=== PATIENT | male | born 1985 | race Two or more races ===

== ENCOUNTER 2022-03-15 16:23 | Outpatient (REF) | payer BC, SELFPAY ==
[2022-03-15 17:01] LABS: MANUAL DIFF FLAG NO
[2022-03-15 17:07] LABS: Basophils Percent Auto 0.3 % (0-2); Eosinophils Absolute Auto 0.1 X10*3/uL (0.0-0.4); Eosinophils Percent Auto 0.5 % (0-4); Hematocrit 41.5 % (42.0-52.0); Imm Gran Abs Auto 0.04 X10*3/uL (0.00-0.03); Imm Gran Pct Auto 0.4 % (0.0-0.4); Lymphocytes Absolute Auto 2.4 X10*3/uL (1.2-4.9); Lymphocytes Percent Auto 21.7 % (20-40); Mean Corpuscular HGB Conc 33.7 g/dl (31.0-36.0); Mean Corpuscular Hemoglobin 30.2 pg (27.0-33.0); Mean Corpuscular Volume 89.6 fL (80.0-98.0); Mean Platelet Volume 10.7 fL (9.4-12.4); Monocytes Absolute Auto 0.8 X10*3/uL (0.1-1.2); Monocytes Percent Auto 7.4 % (2-11); Neutrophils Absolute Auto 7.7 x10*3/uL (2.0-8.3); Neutrophils Percent Auto 69.7 % (45-73); Platelet Count 237 X10*3/uL (160-400); Red Blood Count 4.63 X10*6/uL (4.60-5.80); White Blood Count 11.1 X10*3/uL (4.8-10.8)
[2022-03-15 17:22] LABS: Estimated Average Glucose 97 mg/dL
[2022-03-15 17:42] LABS: Alanine Aminotransferase 15 U/L (0-40); Albumin Level 4.6 g/dL (3.5-5.0); Alkaline Phosphatase 44 U/L (39-117); Anion Gap 10 (12-20); Aspartate Amino Transferase 20 U/L (5-37); Bilirubin Total 0.5 mg/dL (0.0-1.0); Blood Urea Nitrogen 25 mg/dL (9-16); C Reactive Protein < 0.10 mg/dL (< or = 0.50); Calcium 9.6 mg/dL (8.4-10.2); Carbon Dioxide 26 mmol/L (22-29); Chloride 105 mmol/L (96-108); Cholesterol 171 mg/dL; Estimated Glomerular Filt Rate > 60; Glucose Random 91 mg/dL (60-115); Potassium 4.4 mmol/L (3.3-5.1); Rheumatoid Factor < 13.0 IU/mL (<15.0); Sodium 137 mmol/L (135-145); Total Protein 7.5 g/dL (6.5-8.0)
[2022-03-15 18:44] LABS: Appearance Urine Cloudy; Color Urine Yellow; Glucose Urine UA Negative (Negative); Leukocyte Esterase Urine Negative (Negative); Nitrite Urine Negative (Negative); Specific Gravity - Urine 1.025 (1.005-1.025); Urine Blood Negative (Negative); Urine Ketones Negative (Negative); Urine Protein Negative (Neg-Trace)
[2022-03-15 18:52] LABS: Creatinine Urine 137.57 mg/dL; Microalbum/Creatinine Ratio Ur 5.8 ug/mg cr
[2022-03-17 15:43] LABS: Anti Nuclear Antibody Screen NEGATIVE (NEGATIVE)
== END 2022-03-15 16:24 | disposition home or self-care (01) ==
LOC: HO.LAB 16:23
PROVIDERS: PCP Internal Medicine; Visit Provider Internal Medicine
DX: R30.0 Dysuria (principal); R63.4 Abnormal weight loss; Z83.3 Family history of diabetes mellitus
CPT/HCPCS: 36415; 80053; 81003; 82043; 82465; 83036; 85025; 86038; 86039; 86140; 86431; 87086

== ENCOUNTER → 2022-04-26 09:57 | Outpatient (BNVA) | payer BC, SELFPAY | PROVIDERS: PCP Internal Medicine; Visit Provider Nurse Practitioner Family | DX: R39.15 Urgency of urination (principal); N39.43 Post-void dribbling | CPT/HCPCS: 51798 ==

== ENCOUNTER 2022-07-27 15:25 | Outpatient (REF) | payer BC, SELFPAY ==
--- NOTE | ~2022-07-27 | US_ITS ---
EXAMINATION: US RETROPERITONEAL COMPLETE (RENAL) CLINICAL INFORMATION: Postvoid dribbling. COMPARISON: None available. TECHNIQUE: Real-time imaging of the kidneys and bladder. FINDINGS: RIGHT KIDNEY: 11.7 x 6.3 x 7.0 cm (SAG x AP x TRV). The kidney is normal in size, contour, and echogenicity. Renal cortical thickness is normal. No calculi or focal parenchymal lesions. No hydronephrosis. LEFT KIDNEY: 12.5 x 6.5 x 6.3 cm (SAG x AP x TRV). The kidney is normal in size, contour, and echogenicity. Renal cortical thickness is normal. No calculi or focal parenchymal lesions. No hydronephrosis. BLADDER: The bladder is incompletely distended. There is trabeculation versus infolding of partially collapsed bladder. Bilateral ureteral jets are seen. The prevoid volume is 190 mL. The post void volume is 9 mL. The prostate is not enlarged. The prostate volume is 22.4 mL. US/US retroperitoneal comp IMPRESSION: Incompletely distended urinary bladder limits evaluation. There is possible trabeculation versus infolding of the bladder wall. Normal size prostate.
== END 2022-07-27 15:26 | disposition home or self-care (01) ==
LOC: HO.US 15:25
PROVIDERS: Visit Provider Nurse Practitioner Family
DX: N39.43 Post-void dribbling (principal); R39.15 Urgency of urination
CPT/HCPCS: 76770

== ENCOUNTER → 2022-08-18 15:39 | Outpatient (BNVA) | payer BC, SELFPAY | PROVIDERS: PCP Internal Medicine; Visit Provider Nurse Practitioner Family ==

== ENCOUNTER 2022-11-23 17:02 | Outpatient (REF) | payer BC, SELFPAY ==
[2022-11-23 17:13] LABS: MANUAL DIFF FLAG NO
[2022-11-23 17:38] LABS: Basophils Percent Auto 0.3 % (0-2); Eosinophils Absolute Auto 0.1 X10*3/uL (0.0-0.4); Eosinophils Percent Auto 1.1 % (0-4); Hemoglobin 14.6 g/dl (14.0-18.0); Imm Gran Abs Auto 0.03 X10*3/uL (0.00-0.03); Imm Gran Pct Auto 0.3 % (0.0-0.4); Lymphocytes Absolute Auto 2.2 X10*3/uL (1.2-4.9); Lymphocytes Percent Auto 18.6 % (20-40); Mean Corpuscular HGB Conc 33.2 g/dl (31.0-36.0); Mean Corpuscular Hemoglobin 29.8 pg (27.0-33.0); Mean Corpuscular Volume 89.8 fL (80.0-98.0); Mean Platelet Volume 10.3 fL (9.4-12.4); Monocytes Absolute Auto 0.7 X10*3/uL (0.1-1.2); Monocytes Percent Auto 6.1 % (2-11); Neutrophils Absolute Auto 8.6 x10*3/uL (2.0-8.3); Neutrophils Percent Auto 73.6 % (45-73); Platelet Count 299 X10*3/uL (160-400); Red Cell Distribution Width 13.1 % (11.0-16.0); White Blood Count 11.7 X10*3/uL (4.8-10.8)
[2022-11-23 18:05] LABS: Alanine Aminotransferase 15 U/L (0-40); Albumin Level 4.6 g/dL (3.5-5.0); Alkaline Phosphatase 48 U/L (39-117); Anion Gap 12 (12-20); Aspartate Amino Transferase 17 U/L (5-37); Bilirubin Total 0.8 mg/dL (0.0-1.0); Blood Urea Nitrogen 22 mg/dL (9-16); Calcium 10.2 mg/dL (8.4-10.2); Carbon Dioxide 27 mmol/L (22-29); Chloride 104 mmol/L (96-108); Estimated Glomerular Filt Rate > 60; Glucose Random 82 mg/dL (60-115); Potassium 4.1 mmol/L (3.3-5.1); Sodium 139 mmol/L (135-145); Total Protein 7.8 g/dL (6.5-8.0)
[2022-11-23 18:21] LABS: Free T4 (Free Thyroxine) 0.83 ng/dL (0.71-1.85)
[2022-11-23 18:23] LABS: Vitamin B12 885 pg/mL (200-900)
== END 2022-11-23 17:03 | disposition home or self-care (01) ==
LOC: HO.LAB 17:02
PROVIDERS: PCP Internal Medicine; Visit Provider Internal Medicine
DX: R53.83 Other fatigue (principal); Z83.3 Family history of diabetes mellitus
CPT/HCPCS: 36415; 80053; 82607; 84439; 84443; 85025

== ENCOUNTER 2023-02-20 16:30 | Outpatient (REF) | payer BC, SELFPAY ==
[2023-02-20 16:45] LABS: MANUAL DIFF FLAG NO
[2023-02-20 17:05] LABS: Basophils Percent Auto 0.4 % (0-2); Eosinophils Absolute Auto 0.1 X10*3/uL (0.0-0.4); Eosinophils Percent Auto 1.3 % (0-4); Hematocrit 42.8 % (42.0-52.0); Hemoglobin 14.2 g/dl (14.0-18.0); Imm Gran Abs Auto 0.04 X10*3/uL (0.00-0.03); Imm Gran Pct Auto 0.4 % (0.0-0.4); Lymphocytes Absolute Auto 2.2 X10*3/uL (1.2-4.9); Lymphocytes Percent Auto 21.2 % (20-40); Mean Corpuscular HGB Conc 33.2 g/dl (31.0-36.0); Mean Corpuscular Volume 90.3 fL (80.0-98.0); Mean Platelet Volume 10.8 fL (9.4-12.4); Monocytes Absolute Auto 0.7 X10*3/uL (0.1-1.2); Neutrophils Absolute Auto 7.2 x10*3/uL (2.0-8.3); Neutrophils Percent Auto 69.7 % (45-73); Platelet Count 249 X10*3/uL (160-400); Red Blood Count 4.74 X10*6/uL (4.60-5.80); Red Cell Distribution Width 12.9 % (11.0-16.0); White Blood Count 10.3 X10*3/uL (4.8-10.8)
[2023-02-20 17:12] LABS: Appearance Urine Turbid; Color Urine Yellow; Glucose Urine UA Negative (Negative); Leukocyte Esterase Urine Negative (Negative); Nitrite Urine Negative (Negative); PH 7.5 (5.0-9.0); Specific Gravity - Urine 1.025 (1.005-1.025); Urine Blood Negative (Negative); Urine Ketones Negative (Negative); Urine Protein Negative (Neg-Trace)
[2023-02-20 17:35] LABS: Alanine Aminotransferase 14 U/L (0-40); Anion Gap 13 (12-20); Aspartate Amino Transferase 16 U/L (5-37); Blood Urea Nitrogen 26 mg/dL (9-16); Calcium 9.7 mg/dL (8.4-10.2); Carbon Dioxide 26 mmol/L (22-29); Chloride 105 mmol/L (96-108); Estimated Glomerular Filt Rate > 60; Glucose Random 111 mg/dL (60-115); Potassium 4.1 mmol/L (3.3-5.1); Sodium 140 mmol/L (135-145)
[2023-02-20 17:52] LABS: Thyroid Stimulating Hormone 1.68 uIU/mL (0.32-4.0)
[2023-02-20 19:00] LABS: CT PCR NOT DETECTED (Not Detect.); NG PCR NOT DETECTED (Not Detect.)
[2023-02-21 08:37] LABS: Syphilis Screen Nonreactive (Nonreactive)
[2023-02-21 09:05] LABS: HIV AB/AG Nonreactive (Nonreactive); HIV Num 1 0.05 S/CO (0.00-0.99)
== END 2023-02-20 16:31 | disposition home or self-care (01) ==
LOC: HO.LAB 16:30
PROVIDERS: PCP Internal Medicine; Visit Provider Internal Medicine
DX: Z11.4 Encounter for screening for human immunodeficiency virus [HIV] (principal); Z20.2 Contact with and (suspected) exposure to infections with a predominantly sexual mode of transmission; R53.83 Other fatigue; R63.5 Abnormal weight gain; R30.0 Dysuria
CPT/HCPCS: 0353U; 80048; 81003; 84443; 84450; 84460; 85025; 86780; 87389

== ENCOUNTER → 2023-04-17 11:36 | Outpatient (REF) | payer BC, SELFPAY | LOC: HO.SL 11:36 | PROVIDERS: PCP Internal Medicine; Visit Provider Internal Medicine | DX: G47.33 Obstructive sleep apnea (adult) (pediatric) (principal) | CPT/HCPCS: 95806 ==

== ENCOUNTER → 2023-04-17 19:00 | Outpatient (BNV) | payer BC, SELFPAY | PROVIDERS: PCP Internal Medicine; Visit Provider Internal Medicine | DX: G47.33 Obstructive sleep apnea (adult) (pediatric) (principal) | CPT/HCPCS: 95806 ==

== ENCOUNTER 2023-07-30 15:22 | Outpatient (AMB) | payer BC, SELFPAY ==
[2023-07-30 15:32] VITALS: BP 102/64; PULSE 79; O2SAT 98; BMI 29.1
--- NOTE | 2023-07-30 15:32 | A.OFFVIS_ITS ---
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
--- NOTE | 2023-07-30 15:34 | A.OFFVIS_ITS ---
Vital Signs 07/30/23 15:32 Height 5 ft 11 in Weight 208 lb 5.389 oz BMI 29.1 BP 102/64 Blood Pressure Location Lt brachial Pulse 79 Pulse Source Pulse Oximeter Pulse Oximetry (%) 98 Oxygen Delivery Method Room Air Intake Visit Reasons: sleep apnea Allergies No Known Allergies Allergy (Verified 07/30/23 15:48) Medication List - Last Reconciled 07/30/23 by Denise Ramsey MD No Known Home Meds Do you need a note to return to daycare/school/sports/work: No HPI HPI sleep apnea: Details: This 38 years old gentleman is being seen for the 1st time. He had a recent home-based sleep study which is grossly abnormal. He gives me the history that for the last 4-5 years he has been observed to snore heavy. This is as per his ex- and current girlfriend, and his children who have told him that he snores a lot. And also he stops breathing during his sleep. He feels tired and still sleepy when he wakes. Up in the morning During the day he remains active and denies any daytime sleepiness. But if he is home and resting in the afternoon he does have urge to fall asleep. His weight has been relatively stable. 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 [facility] Medical History (Updated 07/30/23 @ 15:59 by Denise Ramsey MD) Retrognathia RIKY (obstructive sleep apnea) Review of Systems Const All systems reviewed & are unremarkable except as noted in HPI and below Reports snoring Eyes Reports no additional complaints ENT Reports no additional complaints Card Reports no additional complaints Resp Reports no additional complaints and Reports snoring GI Reports no additional complaints Reports no additional complaints Musc Reports no additional complaints Skin/Breast Reports system reviewed and no additional complaints, except as documented Neuro Reports no additional complaints Psych Reports no additional complaints Endo Reports no additional complaints Mauricio/Lymph Reports no additional complaints Physical Exam Const General: healthy appearing, comfortable, no acute distress, alert and awake Orientation/consciousness: patient oriented x3 HEENT Head: Yes normal to inspection General nose exam: No nasal polyps present and No nasal discharge present Face and sinus: Yes sinuses nontender Mouth: oropharynx abnormals (Oropharynx is somewhat crowded, Mallampati class 3) Teeth and gingiva: other (He has RETROGANTHIA of the lower jaw.) Throat: Yes posterior oropharynx normal Eyes General: appearance normal, both eyes and all related structures Neck Neck: Yes normal visual inspection, Yes no lymphadenopathy, Yes trachea midline and Yes no JVD Thyroid: Thyroid normal Chest Chest palpation & inspection: normal inspection of the chest, normal palpation of entire chest wall and no tenderness Resp Effort & Inspection: normal respiratory effort Auscultation: clear to auscultation bilaterally, no rhonchi and no wheezes Cardio Palpation: normal PMI Rate: regular rate Rhythm: regular rhythm Heart sounds: no gallops and no murmurs Peripheral pulses: Peripheral pulses 2+ throughout GI Palpation (GI): Soft to palpation, Tenderness to palpation present (GI), No hepatosplenomegaly present and Palpable mass present Auscultation: normal bowel sounds Back/Spine/Pelvis Thoracic/Lumbar Spine: thoracic and lumbar spine normal to inspection Skin General skin exam: no rashes or lesions noted Neuro General: patient oriented x3 and no focal motor deficits Cranial nerves: Yes CN's II-XII intact bilaterally Extrem General: Yes normal to inspection, Yes no clubbing, cyanosis or edema and Yes no calf tenderness Psych Appearance: grossly normal and well kempt Speech and movement: Normal speech and movement present Results Reviewed Results Reviewed: Home-based sleep study on 04/17/2023 Total sleep time AHI 46 snoring for 8% of the sleep time. O2 sat. Average 94% lowest 74% and O2 sat below 88% for 15 minutes Assessment & Plan Assessment & Plan (1) RIKY (obstructive sleep apnea): Comment: This gentleman has had typical symptoms of obstructive sleep apnea for the last 4-5 years. 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 Code(s): G47.33 - Obstructive sleep apnea (adult) (pediatric) Category: Medical Plan: Patient is fully explained and educated about his sleep apnea. Treatment options explained. The 1st option should be to try using CPAP, He was shown the CPAP device and various masks. He is agreeable to use the CPAP. CPAP TREATMENT WITH AUTO PAP MODE AND PRESSURE SETTING 6-20 CM USING FULLFACE MASK IS ORDERED. HE IS ALSO INSTRUCTED THAT HE WILL BE USING THE HUMIDIFICATION. HE WILL BE MONITORED CLOSELY. REVISIT APPOINTMENT IN 4-6 WEEKS IS SET UP SO THAT WE CAN GO OVER HIS COMPLIANCE DATA. 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 SYMPTOMS OF OBSTRUCTIVE SLEEP APNEA HAVE BECOME MORE PRONOUNCED IN THE LAST FEW YEARS. Code(s): M26.19 - Other specified anomalies of jaw-cranial base relationship Category: Medical Plan: PATIENT EXPLAINED THAT BECAUSE THIS IS A PERMANENT DEFECT, HE WOULD NEED TO USE CPAP ON A PERMANENT BASIS. Coding Level of Care Code New Pt Level 3 (26681) Diagnoses RIKY (obstructive sleep apnea) G47.33 Retrognathia M26.19
== END 2023-07-30 15:48 | disposition home or self-care (01) ==
PROVIDERS: PCP Internal Medicine; Visit Provider Internal Medicine
DX: G47.33 Obstructive sleep apnea (adult) (pediatric) (principal); M26.19 Other specified anomalies of jaw-cranial base relationship
CPT/HCPCS: 99213

== ENCOUNTER → 2023-07-30 15:22 | Outpatient (BNVA) | payer BC, SELFPAY | PROVIDERS: PCP Internal Medicine; Visit Provider Internal Medicine ==